=== PATIENT | male | born 1995 | race Two or more races ===

== ENCOUNTER 2019-08-01 13:47 | Emergency (ER) | payer BC, OTHER ==
[~2019-08-01] VITALS: Ht 170.2 cm; Wt 106.6 kg
--- NOTE | 2019-08-01 14:02 | NUR ---
cough x 5 days, per patient exposed to mom Dx PNA, still waiting for covid test. +LOW-GRADE FEVER. DENIES SOB. DENIES PAIN. NO OTHER MEDICAL COMPLAINTS AT THIS TIME. NO ACUTE DISTRESS NOTED. RR EVEN AND UNLABORED ON RA. MADE COMFORTABLE AND READY FOR EVAL.
--- NOTE | 2019-08-01 14:30 | NUR ---
DR OCHOA AT BEDSIDE FOR EVAL.
--- NOTE | 2019-08-01 14:49 | NUR ---
XRAY AT BEDSIDE
--- NOTE | 2019-08-01 15:38 | NUR ---
Patient discharged to home in stable condition. Written and verbal after care instructions given. Patient verbalizes understanding of instruction.
[2019-08-01 15:39] VITALS: BP 143/82
== END 2019-08-01 15:39 | disposition home or self-care (01) ==
LOC: ER 13:49
DX: J20.9 Acute bronchitis, unspecified (principal); B34.9 Viral infection, unspecified
CPT/HCPCS: 71045-TC

== ENCOUNTER 2019-09-28 12:05 | Emergency (ER) | payer OTHER ==
[~2019-09-28] VITALS: Ht 170.2 cm; Wt 104.3 kg
[2019-09-28 12:20] VITALS: BP 145/89
--- NOTE | 2019-09-28 12:20 | NUR ---
COVID SWAB OBTAINED AND SENT TO LAB.
--- NOTE | 2019-09-28 12:29 | NUR ---
Patient discharged to home in stable condition. Written and verbal after care instructions given. Patient verbalizes understanding of instruction.
== END 2019-09-28 12:30 | disposition home or self-care (01) ==
LOC: ER 12:07
DX: Z03.818 Encounter for observation for suspected exposure to other biological agents ruled out (principal)
CPT/HCPCS: 99283; U0003

== ENCOUNTER 2020-06-12 04:18 | Emergency (ER) | payer OTHER ==
[~2020-06-12] VITALS: Ht 177.8 cm; Wt 95.3 kg
[2020-06-12 04:19] VITALS: BP 118/77
== END 2020-06-12 04:54 | disposition home or self-care (01) ==
LOC: ER 04:18
DX: Z20.822 Contact with and (suspected) exposure to COVID-19 (principal)
CPT/HCPCS: 99283; C9803; U0003

== ENCOUNTER 2020-06-18 15:59 | Emergency (ER) | payer OTHER ==
[~2020-06-18] VITALS: Ht 170.2 cm; Wt 81.6 kg
[2020-06-18 16:24] VITALS: BP 134/81
--- NOTE | 2020-06-18 18:09 | NUR ---
COVID SWAB SENT.
== END 2020-06-18 18:36 | disposition home or self-care (01) ==
LOC: ER 16:01
DX: Z20.822 Contact with and (suspected) exposure to COVID-19 (principal)
CPT/HCPCS: 99283; C9803; U0003

== ENCOUNTER 2020-06-26 01:25 | Emergency (ER) | payer OTHER ==
[~2020-06-26] VITALS: Ht 170.2 cm; Wt 104.3 kg
[2020-06-26 01:27] VITALS: BP 119/73
== END 2020-06-26 01:45 | disposition home or self-care (01) ==
LOC: ER 01:28
DX: Z20.822 Contact with and (suspected) exposure to COVID-19 (principal)
CPT/HCPCS: 99283; C9803; U0003

== ENCOUNTER 2020-07-12 10:13 | Emergency (ER) | payer OTHER ==
[~2020-07-12] VITALS: Ht 170.2 cm; Wt 106.6 kg
[2020-07-12 10:15] VITALS: BP 121/70
== END 2020-07-12 10:56 | disposition home or self-care (01) ==
LOC: ER 10:15
DX: Z20.822 Contact with and (suspected) exposure to COVID-19 (principal)
CPT/HCPCS: 87426; 99283; C9803